=== PATIENT | female | born 1995 | race Caucasian/White ===

== ENCOUNTER 2017-06-29 02:43 | Emergency (ER) | payer OTHER ==
[2017-06-29 03:41] LABS: #Basophils 0.1 thou/uL (0.0-0.2); #Monocytes 0.7 thou/uL (0.11-0.59); #Neutrophils 4.6 thou/uL (1.40-6.50); %Basophils 0.8 % (0.0-1.0); %Eosinophils 0.6 % (0.0-10.0); %Lymphocytes 26.8 % (21.0-51.0); %Monocytes 9.3 % (0.0-10.0); Mean Platelet Volume 7.7 fL (7.4-10.4); Red Blood Cell (RBC) Count 4.11 mill/uL (4.20-5.40); White Blood Cell (WBC) Count 7.4 thou/uL (4.8-10.8)
[2017-06-29 03:57] LABS: ALT (SGPT) 9 U/L (8-55); AST (SGOT) 18 U/L (5-34); Acetaminophen Less than 6.0 mcg/mL (10.0-30.0); Alkaline Phosphatase 72 U/L (40-150); Anion Gap 11 mmol/L (10-20); BUN (Urea Nitrogen) 14 mg/dL (9.8-20.1); Bilirubin, Total 0.4 mg/dL (0.2-1.2); Calc. Creatinine Clearance 0 mL/min (70-130); Calcium 8.3 mg/dL (7.8-10.44); Carbon Dioxide 24 mmol/L (23-31); Chloride 103 mmol/L (98-107); Estimated GFR-MDRD 68; Globulin 2.3 g/dL (2.4-3.5); Protein, Total 6.6 g/dL (6.0-8.3); Salicylate Less than 8.0 mg/dL (15.0-30.0)
[2017-06-29 04:00] LABS: Bilirubin Negative (Negative); Blood, Urine Negative (Negative); Glucose, Urine (Dipstick) Negative (Negative); Ketone, Urine Negative (Negative); Nitrite Negative (Negative); Protein, Urine (Dipstick) Negative (Neg-Trace); Urobilinogen 0.2 mg/dL (0.2-1.0)
[2017-06-29 04:14] LABS: Amphetamine Detected (NotDetected); Methadone Not Detected (NotDetected); Methamphetamine Not Detected (NotDetected)
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
== END 2017-06-29 09:27 | disposition home or self-care (01) ==
LOC: EDBD 02:43 → ERS 02:43
DX: F10.129 Alcohol abuse with intoxication, unspecified (principal)
CPT/HCPCS: 36415; 36416; 51701; 70450; 80053; 80306; 80307; 81003; 82550; 84443; 84703; 85025; 96360; 96361; A4353